=== PATIENT | female | born 1965 ===

== ENCOUNTER 2017-12-12 10:26 | Outpatient (CLI) | payer OTHER ==
[~2017-12-12 10:26] MED LIST: ANTIVERT25 M1 PO; CLONAZEPAM0.5 MG
== END 2017-12-12 10:41 | disposition home or self-care (01) ==
LOC: RAD 10:26 → MAMO-SONO 11:15
DX: M12.9 Arthropathy, unspecified (principal); M19.90 Unspecified osteoarthritis, unspecified site

== ENCOUNTER 2017-12-19 06:59 | Emergency (ER) | payer OTHER ==
[~2017-12-19] VITALS: Ht 162.6 cm; Wt 65.8 kg
== END 2017-12-19 11:12 | disposition home or self-care (01) ==
LOC: ER 06:59
DX: M25.562 Pain in left knee (principal); M25.561 Pain in right knee